=== PATIENT | male | born 1975 | race Caucasian/White ===

== ENCOUNTER 2017-01-01 04:21 | Inpatient (IN) | payer OTHER ==
[~2017-01-01] VITALS: Ht 195.6 cm; Wt 112.1 kg
[2017-01-01] VITALS (12 sets, daily range): BP systolic 124–162; BP diastolic 63–82; PULSE 85–105; RESP 16–26; TEMP 97.2–100.5; O2SAT 96–100
[2017-01-01] MEDS ORDERED: ceFAZolin 2 GM PREMIX 50 ML ONE (04:24)
[2017-01-01] MEDS ORDERED: fentaNYL CITRATE 250 MCG/5 ML AMP ONE (04:25)
[2017-01-01] MEDS ORDERED: DIPHTH/TETANUS/ACEL PERTUSSIS (BOOSTER) 0.5 ML VIAL/PFS IM ONE (04:36)
[2017-01-01 04:45] LABS: AUTOMATED NEUTROPHIL # 5.9 TH/MM3 (1.8-7.7); BASOPHIL # 0.1 TH/MM3 (0-0.2); BASOPHIL % 0.7 % (0.0-2.0); EOSINOPHIL # 0.2 TH/MM3 (0-0.4); EOSINOPHIL % 1.5 % (0.0-4.0); HEMO FLAGS DIFF FINAL; LYMPH % 31.5 % (9.0-44.0); LYMPHOCYTE # 3.1 TH/MM3 (1.0-4.8); MEAN CELL VOLUME 87.4 FL (80.0-100.0); MEAN CORPUSCULAR HEMOGLOBIN 30.2 PG (27.0-34.0); MEAN CORPUSCULAR HGB CONC 34.5 % (32.0-36.0); MONO % 5.8 % (0.0-8.0); NEUT % 60.5 % (16.0-70.0); PLATELET COUNT 180 TH/MM3 (150-450); RED BLOOD COUNT 5.04 MIL/MM3 (4.50-5.90); RED CELL DISTRIBUTION WIDTH 13.9 % (11.6-17.2); WHITE BLOOD COUNT 9.8 TH/MM3 (4.0-11.0)
[2017-01-01 04:46] LABS: I-STAT POTASSIUM 6.9 MMOL/L (3.5-4.9)
[2017-01-01] MEDS ORDERED: IOHEXOL 350 MG/ML 10 ML VIAL (for RAD DIAG) IV ONE (04:47)
[2017-01-01 04:58] LABS: APTT (PATIENT) 24.5 SEC (24.3-30.1); INTERNATIONAL NORMALIZED RATIO 0.9 RATIO; PROTHROMBIN TIME - PATIENT 10.4 SEC (9.8-11.6)
[2017-01-01] MEDS ORDERED: SODIUM CHLOR 0.9% 1000 ML INJ 1,000 ML IV SCH (05:09)
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
[2017-01-01] MEDS ORDERED: MISCELLANEOUS NURSING INFORMATION XX SCH (05:15)
[2017-01-01] MEDS ORDERED: CHLORHEXIDINE GLUCONATE 2 % 1 PACK (2 CLOTHS) TOP PRN (05:15)
[2017-01-01] MEDS ORDERED: SODIUM CHLORIDE 0.9% FLUSH 5 ML FLUSH IV FLUSH PRN (05:15)
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
[2017-01-01] MEDS: CLINDAMYCIN INJ 600 MG in SODIUM CHLORIDE 0.9% INJ 100 ML IV SCH ×3 (06:23→21:42)
[2017-01-01 08:08] LABS: ALKALINE PHOSPHATASE 74 U/L (45-117); TOTAL BILIRUBIN ADULT 0.2 MG/DL (0.2-1.0)
[2017-01-01 08:11] LABS: ALT (GPT) 59 U/L (12-78); ANION GAP 9 MEQ/L (5-15); AST (GOT) 33 U/L (15-37); BLOOD UREA NITROGEN 9 MG/DL (7-18); CHLORIDE 108 MEQ/L (98-107); GLOMERULAR FILTRATION RATE 90 ML/MIN (>89); POTASSIUM 3.8 MEQ/L (3.5-5.1); SODIUM (NA) 141 MEQ/L (136-145)
[2017-01-01] MEDS: PANTOPRAZOLE SODIUM 40 MG VIAL IV PUSH SCH (08:41)
[2017-01-01] MEDS ORDERED: SODIUM CHLORIDE 0.9% FLUSH 5 ML FLUSH IV FLUSH SCH (09:00)
[2017-01-01] MEDS ORDERED: ONDANSETRON HCL 4 MG/2 ML VIAL IV PUSH PRN (10:00)
[2017-01-01] MEDS: MORPHINE SULFATE 4 MG/ML INJ IV PRN ×5 (11:15→21:43)
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
[2017-01-01] MEDS: SODIUM CHLOR 0.9% 1000 ML INJ 1,000 ML IV SCH ×2 (15:30→23:19)
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
[2017-01-02] VITALS (14 sets, daily range): BP systolic 133–136; BP diastolic 60–80; PULSE 79–92; RESP 16–23; TEMP 98.4–100.5; O2SAT 96–100
[2017-01-02] MEDS: MORPHINE SULFATE 4 MG/ML INJ IV PRN ×11 (01:45→23:20)
[2017-01-02] MEDS ORDERED: CHLORHEXIDINE GLUCONATE 2 % 1 PACK (2 CLOTHS) TOP SCH (04:00)
[2017-01-02 05:20] LABS: ANION GAP 8 MEQ/L (5-15); AST (GOT) 22 U/L (15-37); BLOOD UREA NITROGEN 9 MG/DL (7-18); CHLORIDE 105 MEQ/L (98-107); GLOMERULAR FILTRATION RATE 99 ML/MIN (>89); MAGNESIUM 2.2 MG/DL (1.5-2.5); POTASSIUM 4.1 MEQ/L (3.5-5.1); SODIUM (NA) 139 MEQ/L (136-145)
[2017-01-02 05:23] LABS: ALKALINE PHOSPHATASE 71 U/L (45-117); ALT (GPT) 43 U/L (12-78); TOTAL BILIRUBIN ADULT 0.9 MG/DL (0.2-1.0)
[2017-01-02] MEDS: CLINDAMYCIN INJ 600 MG in SODIUM CHLORIDE 0.9% INJ 100 ML IV SCH ×3 (05:54→20:42)
--- NOTE | 2017-01-02 06:10 | RADRPT ---
EXAM DATE/TIME: 01/02/2017 04:21 [facility] COMPARISON: CHEST SINGLE AP, January 01, 2017, 4:17. INDICATIONS : Shortness of breath. MEDICAL HISTORY : None. SURGICAL HISTORY : None. ENCOUNTER: Subsequent ACUITY: 2 days PAIN SCORE: Non-responsive. LOCATION: Bilateral chest FINDINGS: A single view of the chest demonstrates the lungs to be symmetrically aerated without evidence of mas s, infiltrate or effusion. The cardiomediastinal contours are unremarkable. Osseous structures are intact. CONCLUSION: 1. No acute findings. Previous fixation right clavicle. Everardo Montes MD on January 02, 2017 at 6:08 Board Certified Radiologist. This report was verified electronically.
[2017-01-02] MEDS: PANTOPRAZOLE SODIUM 40 MG VIAL IV PUSH SCH (08:08)
[2017-01-02] MEDS: SODIUM CHLOR 0.9% 1000 ML INJ 1,000 ML IV SCH (08:09)
[2017-01-02] MEDS ORDERED: ATROPINE SULFATE 1 MG/10 ML SYRINGE ONE (11:02)
[2017-01-02] MEDS ORDERED: LIDOCAINE HCL 2% 100 MG/5 ML SYRINGE ONE (11:02)
[2017-01-02] MEDS ORDERED: EPINEPHrine HCL (1:10,000) 1 MG/10 ML SYRINGE ONE (11:02)
--- NOTE | 2017-01-02 11:34 | RADRPT ---
EXAM DATE/TIME: 01/02/2017 11:12 [facility] COMPARISON: CT BRAIN W/O CONTRAST, January 01, 2017, 4:33. INDICATIONS : Evaluate hemorrhage; post trauma. RADIATION DOSE: 56.35 CTDIvol (mGy) MEDICAL HISTORY : None SURGICAL HISTORY : None. ENCOUNTER: Initial ACUITY: 1 day PAIN SCALE: 5/10 LOCATION: cranial TECHNIQUE: Multiple contiguous axial images were obtained of the head. Using automated exposure control and adj ustment of the mA and/or kV according to patient size, radiation dose was kept as low as reasonably a chievable to obtain optimal diagnostic quality images. FINDINGS: CEREBRUM: The ventricles are normal for age. No evidence of midline shift, mass lesion, hemorrhage or acute in farction. No extra-axial fluid collections are seen. POSTERIOR FOSSA: The cerebellum and brainstem are intact. The 4th ventricle is midline. The cerebellopontine angle i s unremarkable. EXTRACRANIAL: The visualized portion of the orbits is intact. SKULL: The calvaria is intact. No evidence of skull fracture. CONCLUSION: Minimal subarachnoid hemorrhage has resolved. Gómez Justin MD on January 02, 2017 at 11:31 Board Certified Radiologist. This report was verified electronically.
[2017-01-02] MEDS: ACETAMINOPHEN 1000 MG/100 ML VIAL IV SCH ×2 (14:32→21:36)
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
[2017-01-03] VITALS (14 sets, daily range): BP systolic 131–159; BP diastolic 54–80; PULSE 72–90; RESP 15–24; TEMP 98.7–99.5; O2SAT 94–100
[2017-01-03] MEDS: SODIUM CHLOR 0.9% 1000 ML INJ 1,000 ML IV SCH ×2 (01:07→12:49)
[2017-01-03] MEDS: MORPHINE SULFATE 4 MG/ML INJ IV PRN ×9 (03:01→21:23)
[2017-01-03 04:01] LABS: AUTOMATED NEUTROPHIL # 6.6 TH/MM3 (1.8-7.7); BASOPHIL % 0.4 % (0.0-2.0); EOSINOPHIL # 0.2 TH/MM3 (0-0.4); EOSINOPHIL % 2.3 % (0.0-4.0); HEMATOCRIT 40.2 % (39.0-51.0); HEMO FLAGS DIFF FINAL; LYMPH % 12.8 % (9.0-44.0); LYMPHOCYTE # 1.1 TH/MM3 (1.0-4.8); MEAN CELL VOLUME 88.9 FL (80.0-100.0); MEAN CORPUSCULAR HEMOGLOBIN 30.3 PG (27.0-34.0); MONO % 8.1 % (0.0-8.0); NEUT % 76.4 % (16.0-70.0); PLATELET COUNT 107 TH/MM3 (150-450); RED BLOOD COUNT 4.52 MIL/MM3 (4.50-5.90); RED CELL DISTRIBUTION WIDTH 14.1 % (11.6-17.2); WHITE BLOOD COUNT 8.7 TH/MM3 (4.0-11.0)
[2017-01-03] MEDS: CLINDAMYCIN INJ 600 MG in SODIUM CHLORIDE 0.9% INJ 100 ML IV SCH ×3 (04:15→22:12)
[2017-01-03 04:29] LABS: ALT (GPT) 32 U/L (12-78); ANION GAP 11 MEQ/L (5-15); AST (GOT) 14 U/L (15-37); BICARBONATE 26.3 MEQ/L (21.0-32.0); BLOOD UREA NITROGEN 10 MG/DL (7-18); CHLORIDE 102 MEQ/L (98-107); GLOMERULAR FILTRATION RATE 107 ML/MIN (>89); POTASSIUM 4.1 MEQ/L (3.5-5.1); SODIUM (NA) 139 MEQ/L (136-145)
[2017-01-03 04:31] LABS: ALKALINE PHOSPHATASE 70 U/L (45-117)
[2017-01-03] MEDS: ACETAMINOPHEN 1000 MG/100 ML VIAL IV SCH ×2 (05:12→13:39)
[2017-01-03] MEDS: PANTOPRAZOLE SODIUM 40 MG VIAL IV PUSH SCH (07:53)
[2017-01-03] MEDS: LACTULOSE SYRUP 20 GM/30 ML CUP PO SCH ×2 (09:00→10:21)
[2017-01-03] MEDS: DOCUSATE SODIUM 100 MG CAP PO SCH ×3 (09:00→20:31)
[2017-01-03] MEDS: ENOXAPARIN SODIUM 40 MG/0.4 ML SYRINGE SQ SCH (11:51)
[2017-01-03] MEDS ORDERED: DEXAMETHASONE SOD PHOS 20 MG/5 ML VIAL IV PUSH ONE (17:30)
[2017-01-03] MEDS: SILVER SULFADIAZINE 1% CR 50 GM JAR TOPICAL SCH (17:37)
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
[2017-01-03] MEDS: MAGNESIUM HYDROXIDE SUSP 30 ML CUP PO SCH (20:31)
[2017-01-03] MEDS: HYDROmorphone HCL PF 1 MG/ML VIAL IV PUSH PRN (22:20)
[2017-01-04] VITALS: BP 132/71; PULSE 76; RESP 17; TEMP 98.2; O2SAT 96
[2017-01-04] MEDS: SODIUM CHLOR 0.9% 1000 ML INJ 1,000 ML IV SCH ×3 (00:41→20:25)
[2017-01-04] MEDS: MORPHINE SULFATE 4 MG/ML INJ IV PRN ×4 (00:41→13:20)
[2017-01-04] MEDS: HYDROmorphone HCL PF 1 MG/ML VIAL IV PUSH PRN ×3 (02:42→12:08)
[2017-01-04 04:00] VITALS: BP 132/75; PULSE 68; RESP 17; TEMP 97.8; O2SAT 97
[2017-01-04 04:07] LABS: AUTOMATED NEUTROPHIL # 7.5 TH/MM3 (1.8-7.7); BASOPHIL % 0.2 % (0.0-2.0); EOSINOPHIL % 0.1 % (0.0-4.0); HEMO FLAGS DIFF FINAL; LYMPHOCYTE # 0.5 TH/MM3 (1.0-4.8); MEAN CELL VOLUME 86.9 FL (80.0-100.0); MEAN CORPUSCULAR HGB CONC 34.5 % (32.0-36.0); MONO % 3.5 % (0.0-8.0); NEUT % 90.2 % (16.0-70.0); PLATELET COUNT 132 TH/MM3 (150-450); RED BLOOD COUNT 4.37 MIL/MM3 (4.50-5.90); RED CELL DISTRIBUTION WIDTH 13.3 % (11.6-17.2); WHITE BLOOD COUNT 8.3 TH/MM3 (4.0-11.0)
[2017-01-04 04:35] LABS: ALKALINE PHOSPHATASE 71 U/L (45-117); TOTAL BILIRUBIN ADULT 0.7 MG/DL (0.2-1.0)
[2017-01-04 04:37] LABS: ALT (GPT) 27 U/L (12-78); ANION GAP 11 MEQ/L (5-15); AST (GOT) 18 U/L (15-37); BICARBONATE 22.1 MEQ/L (21.0-32.0); BLOOD UREA NITROGEN 9 MG/DL (7-18); CHLORIDE 102 MEQ/L (98-107); GLOMERULAR FILTRATION RATE 124 ML/MIN (>89); POTASSIUM 4.3 MEQ/L (3.5-5.1); SODIUM (NA) 135 MEQ/L (136-145)
[2017-01-04] MEDS: CLINDAMYCIN INJ 600 MG in SODIUM CHLORIDE 0.9% INJ 100 ML IV SCH ×3 (04:39→20:33)
[2017-01-04 08:00] VITALS: BP 146/91; PULSE 56; RESP 18; TEMP 97.2; O2SAT 96
[2017-01-04] MEDS: PANTOPRAZOLE SODIUM 40 MG VIAL IV PUSH SCH (08:10)
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
[2017-01-04] MEDS: DOCUSATE SODIUM 100 MG CAP PO SCH (09:00)
[2017-01-04] MEDS: LACTULOSE SYRUP 20 GM/30 ML CUP PO SCH (09:00)
[2017-01-04] MEDS: SILVER SULFADIAZINE 1% CR 50 GM JAR TOPICAL SCH ×2 (09:00→20:25)
[2017-01-04] MEDS ORDERED: BISACODYL EC 5 MG TABEC PO ONE (10:00)
[2017-01-04] MEDS ORDERED: BISACODYL 10 MG SUPP RECTAL ONE (10:00)
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
[2017-01-04 12:00] VITALS: BP 139/79; PULSE 77; RESP 17; TEMP 96.8; O2SAT 93
[2017-01-04] MEDS ORDERED: NEOSTIGMINE 3 MG/3 ML SYR IV ONE (12:00)
[2017-01-04] MEDS ORDERED: ONDANSETRON HCL 4 MG/2 ML VIAL IV PUSH ONE (12:00)
[2017-01-04] MEDS ORDERED: LACTATED RINGER'S 1000 ML INJ 1,000 ML IV ONE (12:00)
[2017-01-04] MEDS ORDERED: PROPOFOL 200 MG/20 ML AMP IV ONE (12:00)
[2017-01-04] MEDS: ENOXAPARIN SODIUM 40 MG/0.4 ML SYRINGE SQ SCH (12:00)
[2017-01-04] MEDS ORDERED: PHENYLEPHRINE HCL 0.25% NASAL SPRAY 15 ML BTL NASAL ONE (12:00)
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
[2017-01-04] MEDS ORDERED: CHLORHEXIDINE GLUCONATE 0.12% 30 ML CUP ONE (15:40)
[2017-01-04] MEDS ORDERED: BUPIVACAINE HCL PF 0.5% 30 ML VIAL ONE (15:40)
[2017-01-04] MEDS ORDERED: LIDOCAINE 1%/EPINEPHrine 1:100,000 SOLN 30 ML VIAL ONE (15:40)
[2017-01-04] MEDS ORDERED: LIDOCAINE 1%/EPINEPHrine 1:100,000 SOLN 50 ML VIAL ONE (15:42)
[2017-01-04] MEDS ORDERED: BUPIVACAINE HCL PF 0.25% 30 ML VIAL ONE (15:45)
[2017-01-04] MEDS ORDERED: BUPIVACAINE/EPINEPHRINE 0.25% 50 ML VIAL ONE (15:49)
[2017-01-04 16:00] VITALS: BP 151/88; PULSE 106; RESP 18; TEMP 97.4; O2SAT 95
[2017-01-04] MEDS ORDERED: HYDROmorphone HCL PF 2 MG/ML VIAL ONE (16:10)
[2017-01-04] MEDS ORDERED: BUPIVACAINE/EPINEPHRINE 0.25% 50 ML VIAL INFIL ONE (16:52)
[2017-01-04] MEDS ORDERED: Post-op Orders (for Pharmacy) MISC XX ONE (19:00)
[2017-01-04] MEDS ORDERED: diphenhydrAMINE HCL 25 MG CAP PO PRN (19:00)
[2017-01-04] MEDS ORDERED: SODIUM CHLORIDE 0.9% FLUSH 10 ML FLUSH IV FLUSH PRN (19:00)
[2017-01-04] MEDS ORDERED: ONDANSETRON HCL 4 MG/2 ML VIAL IV PRN (19:00)
[2017-01-04] MEDS ORDERED: fentaNYL CITRATE 250 MCG/5 ML AMP ONE (19:15)
[2017-01-04] MEDS ORDERED: *MEPERIDINE 25 MG INJ VIAL PERIprocedural Use ONLY ONE (19:28)
[2017-01-04] MEDS ORDERED: *morphine SULFATE 8 MG/ML PERIprocedure ONLY ONE (19:28)
[2017-01-04] MEDS ORDERED: DIMETHICONE/OXYBENZONE/PADMIATE LIP BALM 4.25 GM ONE (19:42)
[2017-01-04] MEDS: SODIUM CHLORIDE 0.9% FLUSH 10 ML FLUSH IV FLUSH SCH (20:12)
[2017-01-04 20:20] VITALS: BP 155/73; PULSE 69; RESP 18; TEMP 96.5; O2SAT 92
[2017-01-04] MEDS: methylPREDNISolone SOD SUCC 125 MG/2 ML VIAL IV PUSH SCH (20:23)
[2017-01-04] MEDS: MAGNESIUM HYDROXIDE SUSP 30 ML CUP PO SCH (20:25)
[2017-01-04] MEDS: HYDROmorphone HCL PF 1 MG/ML VIAL IV PRN ×2 (20:33→23:57)
[2017-01-04] MEDS ORDERED: DO NOT ADM ANY ANTICOAGULANT DRUGS XX PRN (20:45)
[2017-01-04] MEDS ORDERED: DOCUSATE SODIUM 100 MG CAP PO SCH (21:00)
[2017-01-05] VITALS (7 sets, daily range): BP systolic 132–165; BP diastolic 75–88; PULSE 63–99; RESP 17–22; TEMP 96.6–98.9; O2SAT 94–98
[2017-01-05] MEDS: HYDROmorphone HCL PF 1 MG/ML VIAL IV PRN ×4 (02:40→09:57)
[2017-01-05 04:29] LABS: HEMATOCRIT 36.8 % (39.0-51.0); REVIEW FLAG FINAL
[2017-01-05] MEDS: SODIUM CHLOR 0.9% 1000 ML INJ 1,000 ML IV SCH (05:37)
[2017-01-05] MEDS: CLINDAMYCIN INJ 600 MG in SODIUM CHLORIDE 0.9% INJ 100 ML IV SCH (05:37)
[2017-01-05] MEDS: LACTULOSE SYRUP 20 GM/30 ML CUP PO SCH (08:12)
[2017-01-05] MEDS: PANTOPRAZOLE SODIUM 40 MG VIAL IV PUSH SCH (08:13)
[2017-01-05] MEDS: methylPREDNISolone SOD SUCC 125 MG/2 ML VIAL IV PUSH SCH ×2 (08:13→21:09)
[2017-01-05] MEDS: SODIUM CHLORIDE 0.9% FLUSH 10 ML FLUSH IV FLUSH SCH ×2 (08:21→21:00)
[2017-01-05] MEDS: SILVER SULFADIAZINE 1% CR 50 GM JAR TOPICAL SCH ×2 (08:21→21:16)
[2017-01-05] MEDS: DOCUSATE SODIUM 50 MG/SENNA 8.6 MG TAB PO SCH ×2 (09:58→21:10)
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
[2017-01-05] MEDS ORDERED: OXYC1TAB63 PO (11:10)
[2017-01-05] MEDS ORDERED: MILKSUS PO (11:10)
[2017-01-05] MEDS ORDERED: SENN1TAB PO (11:10)
[2017-01-05] MEDS: ENOXAPARIN SODIUM 40 MG/0.4 ML SYRINGE SQ SCH (11:59)
[2017-01-05] MEDS: MORPHINE SULFATE 4 MG/ML INJ IV PRN ×4 (12:00→21:08)
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
[2017-01-05] MEDS ORDERED: MAGNESIUM CITRATE SOLN 300 ML BTL PO ONE (15:00)
--- NOTE | 2017-01-05 15:06 | HHI.PR ---
Subjective Remarks POD #1 for this 37yo patient s/p ORIF of the a left parasymphysis fracture. Pt was seen this afternoon resting comfortably in bed eating a soft diet in no acute distress. Pt's mother we was at bedside. Pt states his pain is well controlled. Pt denies any nausea, vomiting or fever. Vitals signs stable. Objective Vital Signs Date Time Temp Pulse Resp B/P Pulse Ox O2 Delivery O2 Flow Rate FiO2 01/05/17 12:00 98.9 74 18 141/78 96 01/05/17 12:00 96.6 63 19 165/75 94 01/05/17 10:38 98 Nasal Cannula 2.00 01/05/17 08:00 97.9 99 19 133/77 98 01/05/17 08:00 97.9 99 19 137/77 98 01/05/17 04:00 98.9 73 17 132/76 95 01/05/17 00:00 97.6 72 17 162/88 94 01/04/17 20:20 96.5 69 18 155/73 92 01/04/17 20:00 99.2 70 12 154/80 95 Nasal Cannula 4 01/04/17 19:45 66 10 154/87 97 Nasal Cannula 4 01/04/17 19:30 70 10 163/96 99 Nasal Cannula 4 01/04/17 19:15 78 10 170/96 98 Simple Mask 10 01/04/17 19:05 76 9 164/69 84 Simple Mask 10 01/04/17 19:01 100.0 71 9 184/86 98 Simple Mask 10 01/04/17 16:00 97.4 106 18 151/88 95 I/O 01/04/17 01/04/17 01/04/17 01/05/17 01/05/17 01/05/17 07:00 15:00 23:00 07:00 15:00 23:00 Intake Total 562 ml 1590 ml 1175 ml 120 ml Output Total 750 ml 1800 ml 1650 ml Balance -188 ml -210 ml -475 ml 120 ml Intake Oral 0 ml 240 ml 240 ml 120 ml IV Total 562 ml 250 ml 935 ml Other 1100 ml Output Urine Total 750 ml 1600 ml 1650 ml Estimated Blood Loss 200 ml Other 0 ml # Bowel Movements 0 Result Diagram: 01/05/17 0407 01/04/17 0327 Imaging Last Impressions Cervical Spine MRI 01/04/17 0000 Signed Impressions: Service Date/Time: Wednesday, January 04, 2017 14:42 - CONCLUSION: 1. Acute fracture involving the C6 spinous process. 2. Small focal right paracentral disc herniation at C4-5. 3. Minimal spinal stenosis and bilateral foraminal narrowing at C5-6 predominantly related to mild diffuse disc osteophyte complex at this level. 4. No evidence of cord injury. Gabino Luis MD Chest X-Ray 01/02/17 0600 Signed Impressions: Service Date/Time: Monday, January 02, 2017 04:21 - CONCLUSION: 1. No acute findings. Previous fixation right clavicle. Everardo Montes MD Head CT 01/02/17 0000 Signed Impressions: Service Date/Time: Monday, January 02, 2017 11:12 - CONCLUSION: Minimal subarachnoid hemorrhage has resolved. Gómez Justin MD Pelvis X-Ray 01/01/17427 Signed Impressions: Service Date/Time: Sunday, January 01, 2017 04:17 - CONCLUSION: Unremarkable examination of the pelvis. Everardo Montes MD Maxillofacial CT 01/01/17427 Signed Impressions: Service Date/Time: Sunday, January 01, 2017 04:33 - CONCLUSION: 1. Displaced left anterior body mandibular fracture with surrounding soft tissue swelling, hematoma and air in the subcutaneous tissues. No other facial bone fractures identified. Everardo Montes MD Chest CT 01/01/17427 Signed Impressions: Service Date/Time: Sunday, January 01, 2017 04:38 - CONCLUSION: 1. Negative for acute traumatic injury in the thorax. Previous plate and screw fixation of the right clavicle. Everardo Montes MD Cervical Spine CT 01/01/17427 Signed Impressions: Service Date/Time: Sunday, January 01, 2017 04:33 - CONCLUSION: 1. Fracture of the spinous process of C6 with mild displacement. No vertebral body fracture is identified. Everardo Montes MD Abdomen/Pelvis CT 01/01/17427 Signed Impressions: Service Date/Time: Sunday, January 01, 2017 04:38 - CONCLUSION: 1. No acute traumatic injury identified within the abdomen and pelvis. Everardo Montes MD Tibia/Fibula X-Ray 01/01/17 0000 Signed Impressions: Service Date/Time: Sunday, January 01, 2017 04:17 - CONCLUSION: 1. No acute bony abnormalities. Everardo Montes MD Procedures ORIF of left parasymphysis fracture Objective Remarks Left lower third facial edema noted secondary to surgical manipulation. V3 paresthesia present on the left lower lip and chin. Incision sites clean, surgical sites hemostatic. extraction site of 20 healing well. Occlusion is stable and reproducible. Floor of mouth edematous. Airway is patent. JESSICA 35mm. Medications and IVs Active Medications Bupivacaine HCl (Marcaine Pf 0.25% Inj) 30 ml STK-MED ONCE .ROUTE; Start at 15:45; Stop 01/04/17 at 15:46; Status DC Bupivacaine HCl (Marcaine Pf 0.5% Inj) 30 ml STK-MED ONCE .ROUTE; Start at 15:40; Stop 01/04/17 at 15:41; Status DC Bupivacaine HCl/ Epinephrine Bitart 50 ml 50 ml STK-MED ONCE INFIL Last administered on 01/04/17 16:52; Admin Dose 15 ML; Start 01/04/17 at 16:52; Stop 01/04/17 at 17:24; Status DC Bupivacaine HCl/ Epinephrine Bitart (Sensorcaine-Epinephrine 0.25% Inj) 50 ml STK-MED ONCE .ROUTE Last administered on 01/04/17 16:36; Admin Dose 15 ML; Start 01/04/17 at 15:49; Stop 01/04/17 at 15:50; Status DC Cefazolin Sodium/ Sodium Chloride (Ancef Inj/NS Inj) 100 ml @ 200 mls/hr Q8H IV Last administered on 01/05/17 11:59; Admin Dose 200 MLS/HR; Start 01/04/17 at 20:00; Stop 01/05/17 at 12:29; Status DC Chlorhexidine Gluconate (Peridex 0.12% Liq) 30 ml STK-MED ONCE .ROUTE Last administered on 01/04/17 16:36; Admin Dose 30 ML; Start 01/04/17 at 15:40; Stop 01/04/17 at 15:41; Status DC Diphenhydramine HCl 25 mg 25 mg Q6H PRN PO; Start 01/04/17 at 19:00 Docusate Sodium (Colace) 100 mg BID PO; Start 01/04/17 at 21:00; Stop 01/05/17 at 07:57; Status DC Fentanyl Citrate (fentaNYL INJ) 500 mcg STK-MED ONCE .ROUTE; Start 01/04/17 at 19:15; Stop 01/04/17 at 19:16; Status DC Hydromorphone HCl (Dilaudid Pf Inj) 0.5 mg Q2H PRN IV Last administered on 01/05 08:16; Admin Dose 0.5 MG; Start 01/04/17 at 19:00; Stop 01/05/17 at 10:36 ; Status DC Hydromorphone HCl (Dilaudid Pf Inj) 1 mg Q2H PRN IV Last administered on 09:57; Admin Dose 1 MG; Start 01/04/17 at 19:00; Stop 01/05/17 at 10:36; Status DC Hydromorphone HCl (Dilaudid Pf Inj) 2 mg STK-MED ONCE .ROUTE; Start 01/04/17 at 16:10; Stop 01/04/17 at 16:11; Status DC Lidocaine/ Epinephrine (Xylocaine-Epi 1%-1:100,000 Inj) 30 ml STK-MED ONCE .ROUTE; Start 01/04/17 at 15:40; Stop 01/04/17 at 15:41; Status DC Lidocaine/ Epinephrine (Xylocaine-Epi 1%-1:100,000 Inj) 50 ml STK-MED ONCE .ROUTE Last administered on 01/04/17 16:36; Admin Dose 15 ML; Start 01/04/17 at 15:42; Stop 01/04/17 at 15:43; Status DC Meperidine HCl (*DEMEROL INJ PERIprocedural ONLY) 25 mg STK-MED ONCE .ROUTE Last administered on 01/04/17 19:28; Admin Dose 25 MG; Start 01/04/17 at 19:28 ; Stop 01/04/17 at 19:29; Status DC Methylprednisolone Sodium Succinate (SoluMEDROL INJ) 60 mg Q12HR IV PUSH Last administered on 01/05/17 08:13; Admin Dose 60 MG; Start 01/04/17 at 21:00; Stop 01/06/17 at 08:00 Miscellaneous Information ALL NURSING DEPARTME... UNSCH PRN XX; Start 01/04/17 at 20:45; Stop 01/05/17 at 20:44 Miscellaneous Information (Post-op Orders (for Pharmacy)) STAT ONCE XX; Start 01/04/17 at 19:00; Stop 01/04/17 at 19:10; Status DC Morphine Sulfate (*morphine INJ PERIprocedure ONLY) 8 mg STK-MED ONCE .ROUTE Last administered on 01/04/17 19:37; Admin Dose 5 MG; Start 01/04/17 at 19:28; Stop 01/04/17 at 19:29; Status DC Ondansetron HCl (Zofran Inj) 4 mg Q4H PRN IV; Start 01/04/17 at 19:00 Oxybenzone/ Padimate O/ Dimethicone (Blistex Lip [place]) 4.25 applic STK-MED ONCE .ROUTE Last administered on 01/04/17 19:42; Admin Dose 4.25 APPLIC; Start 01/04 at 19:42; Stop 01/04/17 at 19:43; Status DC Oxycodone/ Acetaminophen (Percocet 5-325 Mg) 1 tab Q4H PRN PO; Start 01/04/17 at 19:00 Senna/Docusate Sodium (Tamiko-Colace) 2 tab BID PO Last administered on 01/05/17 09:58; Admin Dose 2 TAB; Start 01/05/17 at 09:00 Sodium Chloride (NS 1000 ml Inj) 1,000 ml @ 100 mls/hr Q10H IV Last administered on 01/05/17 05:37; Admin Dose 100 MLS/HR; Start 01/04/17 at 19:00 ; Stop 01/05/17 at 07:56; Status DC Sodium Chloride (NS Flush) 2 ml BID IV FLUSH; Start 01/04/17 at 21:00 Sodium Chloride (NS Flush) 2 ml UNSCH PRN IV FLUSH; Start 01/04/17 at 19:00 Assessment and Plan Assessment and Plan A: POD #1 s/p ORIF od left parasymphysis fracture. Healing as expected. P: Pt cleared from OMS standpoint. Upon discharge pt states he going to return to [place] where he is from. Pt instructed to find an OMS to continue his follow-ups for 6 weeks, 1 week after discharge. Soft non-chew diet for 6 weeks Peridex rinse BID for 2 weeks Pain meds as needed Antibiotic therapy for 1 week. Discussed Condition With Patient and mother Discharge Planning Tomorrow Rocky Vizcarra DDS Jan 05, 2017 15:06
[2017-01-05] MEDS: MAGNESIUM HYDROXIDE SUSP 30 ML CUP PO SCH (21:00)
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
[2017-01-05] MEDS: oxyCODONE/ACETAMINOPHEN 5 MG/325 MG TAB PO PRN (22:34)
[2017-01-06] VITALS: BP 144/79; PULSE 66; RESP 22; TEMP 98; O2SAT 96
[2017-01-06] MEDS: MORPHINE SULFATE 4 MG/ML INJ IV PRN ×2 (01:05→10:16)
[2017-01-06] MEDS ORDERED: PERI0.126 SWISH-SWAL (07:49)
[2017-01-06] MEDS: oxyCODONE/ACETAMINOPHEN 5 MG/325 MG TAB PO PRN ×2 (07:54→12:35)
[2017-01-06] MEDS: SODIUM CHLORIDE 0.9% FLUSH 10 ML FLUSH IV FLUSH SCH (07:55)
[2017-01-06] MEDS: LACTULOSE SYRUP 20 GM/30 ML CUP PO SCH (07:55)
[2017-01-06] MEDS: PANTOPRAZOLE SODIUM 40 MG VIAL IV PUSH SCH (07:55)
[2017-01-06] MEDS: DOCUSATE SODIUM 50 MG/SENNA 8.6 MG TAB PO SCH (07:55)
[2017-01-06] MEDS: SILVER SULFADIAZINE 1% CR 50 GM JAR TOPICAL SCH (07:55)
[2017-01-06 08:14] VITALS: BP 134/71; PULSE 64; RESP 19; TEMP 97.6; O2SAT 96
[2017-01-06] MEDS: ENOXAPARIN SODIUM 40 MG/0.4 ML SYRINGE SQ SCH (11:44)
[2017-01-06 12:00] VITALS: BP 144/82; PULSE 86; RESP 21; TEMP 98; O2SAT 95
--- NOTE | 2017-01-06 12:33 | PD.PLAS.PN ---
Subjective Remarks Patient is 2 days status post debridement and repair of wounds of the right leg. Objective Vital Signs Date Time Temp Pulse Resp B/P Pulse Ox O2 Delivery O2 Flow Rate FiO2 01/06/17 12:00 98.0 86 21 144/82 95 01/06/17 08:14 97.6 64 19 134/71 96 01/06/17 00:00 98.0 66 22 144/79 96 01/05/17 20:00 98.5 67 22 139/82 96 01/05/17 17:47 94 21 I/O 01/05/17 01/05/17 01/05/17 01/06/17 01/06/17 01/06/17 07:00 15:00 23:00 07:00 15:00 23:00 Intake Total 1175 ml 1233 ml 0 ml 480 ml 120 ml Output Total 1650 ml 1800 ml 1400 ml Balance -475 ml -567 ml 0 ml -920 ml 120 ml Intake Oral 240 ml 360 ml 480 ml 120 ml IV Total 935 ml 873 ml 0 ml Output Urine Total 1650 ml 1800 ml 1400 ml # Bowel Movements 0 0 Result Diagram: 01/05/17 0407 01/04/17 0327 Exam Findings Wounds are healing well. Sutures are in place. There is no erythema, drainage , odor, or other evidence of infection. Assessment and Plan Diagnosis: (1) Leg laceration Assessment and Plan Wounds are redressed. Sutured wound of the anterior leg is dressed with povidone iodine ointment and telfa. Abrasions of the dorsal leg are dressed with adaptic, betadine soaked telfa, and ABD pads. The leg is wrapped with karissa, then loosely with ricco. Patient is advised to change dressing daily. Instructions are discussed and described in discharge order. He is advised to keep the leg elevated. He is returning home to [place] and will find a specialist to follow up with when he gets home. Discussed with Elaine Alfred Jan 06, 2017 12:32
[2017-01-07] MEDS ORDERED: PANTOPRAZOLE SOD 40 MG DELAYED RELEASE TAB PO SCH (09:00)
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
== END 2017-01-06 16:03 | disposition home health service (06) | DRG 131 ==
LOC: NEPI 04:21 → NEDA 05:12 → EDBD 05:12 → N03A 05:19 → N07A 01-03 21:42
PROVIDERS: ADMIT Surgery Trauma Surgery; ATTEND Surgery Trauma Surgery
PROC: 0NSV04Z Reposition Left Mandible with Internal Fixation Device, Open Approach (ICD-10-PCS; principal; 2017-01-04 16:15)
PROC: 0JBN0ZZ Excision of Right Lower Leg Subcutaneous Tissue and Fascia, Open Approach (ICD-10-PCS; 2017-01-04 16:15)
DX: S02.66XB Fracture of symphysis of mandible, initial encounter for open fracture (principal); S06.6X0A Traumatic subarachnoid hemorrhage without loss of consciousness, initial encounter; S12.191A Other nondisplaced fracture of second cervical vertebra, initial encounter for closed fracture; S12.590A Other displaced fracture of sixth cervical vertebra, initial encounter for closed fracture; S81.811A Laceration without foreign body, right lower leg, initial encounter; R40.2412 Glasgow coma scale score 13-15, at arrival to emergency department; S60.511A Abrasion of right hand, initial encounter; E66.9 Obesity, unspecified; K21.9 Gastro-esophageal reflux disease without esophagitis; F10.129 Alcohol abuse with intoxication, unspecified; F12.90 Cannabis use, unspecified, uncomplicated; F17.210 Nicotine dependence, cigarettes, uncomplicated; V29.9XXA Motorcycle rider (driver) (passenger) injured in unspecified traffic accident, initial encounter; Z68.29 Body mass index [BMI] 29.0-29.9, adult
CPT/HCPCS: 70450; 70486; 71010; 71260; 72125; 72141; 72170; 73590; 74177; 80053; 82435; 82565; 82947; 83735; 84100; 84132; 84295; 84520; 85014; 85018; 85025; 85610; 85730; 86850; 86900; 86901; 90471; 90715; 94003; 94150; 96374; 99291; C1713; C9113; G0390; J0131; J0171; J0461; J0690; J1100; J1170; J1650; J2175; J2270; J2405; J2710; J2930; J3010; J7030; J7120; L0150; L0172; Q9967